=== PATIENT | female | born 1995 | race African-American/Black ===

== ENCOUNTER 2017-09-12 22:25 | Emergency (ER) | payer SELFPAY ==
--- NOTE | 2017-09-12 23:28 | EDPHYS ---
Physician Documentation [facility] Name: Chen Murillo Age: 22 yrs Sex: Female : 1995 Arrival Date: 09/12/2017 Time: 22:29 Bed 15 Private MD: ED Physician James Paz HPI: 09/12 23:24 This 22 yrs old Black Female presents to ER via Ambulatory with complaints of flu gs symptoms. 23:24 The patient or guardian reports cough, flu symptoms, arthralgias, low-grade fever, gs myalgias, no appetite. Onset: The symptoms/episode began/occurred today. Severity of symptoms: At their worst the symptoms were moderate, in the emergency department the symptoms are unchanged. Modifying factors: The symptoms are alleviated by nothing, the symptoms are aggravated by nothing. Associated signs and symptoms: Pertinent positives: dizziness, lightheaded generally weak. The patient has experienced similar episodes in the past, a few times. The patient has not recently seen a physician. 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 - Social history:: Smoking status: Patient/guardian denies using tobacco. ROS: 23:24 Neuro: Positive for headache, onset a month ago gradual in onset, unilateral, throbs. gs 23:24 All other systems are negative. Exam: 23:24 Head/Face: Normocephalic, atraumatic. Eyes: Pupils equal round and reactive to light, gs extra-ocular motions intact. Lids and lashes normal. Conjunctiva and sclera are non-icteric and not injected. Cornea within normal limits. Periorbital areas with no swelling, redness, or edema. ENT: Nares patent. No nasal discharge, no septal abnormalities noted. Tympanic membranes are normal and external auditory canals are clear. Oropharynx with no redness, swelling, or masses, exudates, or evidence of obstruction, uvula midline. Mucous membranes moist. Neck: Trachea midline, no thyromegaly or masses palpated, and no cervical lymphadenopathy. Supple, full range of motion without nuchal rigidity, or vertebral point tenderness. No Meningismus. Chest/axilla: Normal chest wall appearance and motion. Nontender with no deformity. No lesions are appreciated. Cardiovascular: Regular rate and rhythm with a normal S1 and S2. No gallops, murmurs, or rubs. Normal PMI, no JVD. No pulse deficits. Respiratory: Lungs have equal breath sounds bilaterally, clear to auscultation and percussion. No rales, rhonchi or wheezes noted. No increased work of breathing, no retractions or nasal flaring. Abdomen/GI: Soft, non-tender, with normal bowel sounds. No distension or tympany. No guarding or rebound. No evidence of tenderness throughout. Back: No spinal tenderness. No costovertebral tenderness. Full range of motion. Skin: Warm, dry with normal turgor. Normal color with no rashes, no lesions, and no evidence of cellulitis. MS/ Extremity: Pulses equal, no cyanosis. Neurovascular intact. Full, normal range of motion. Neuro: Awake and alert, GCS 15, oriented to person, place, time, and situation. Cranial nerves II-XII grossly intact. Motor strength 5/5 in all extremities. Sensory grossly intact. Cerebellar exam normal. Normal gait. 23:24 Constitutional: The patient appears alert, awake. Vital Signs: 22:40 BP 129 / 82; Pulse 88; Resp 18; Temp 97.2(TE); Pulse Ox 99% on R/A; Weight 122.47 kg ak1 (R); Height 5 ft. 3 in. (160.02 cm) (R); Pain 0/10; 23:42 BP 118 / 83; Pulse 84; Resp 18; Temp 98.1; Pulse Ox 100% on R/A; Pain 0/10; ak1 22:40 Body Mass Index 47.83 (122.47 kg, 160.02 cm) ak1 MDM: 23:09 Patient medically screened. gs 23:24 Differential Diagnosis: Bronchitis Influenza Upper Respiratory Infection. Data gs reviewed: vital signs, nurses notes. Administered Medications: No medications were administered Disposition: 09/12/17 23:27 Discharged to Home. Impression: Acute upper respiratory infection, unspecified, Headache. - Condition is Stable. - Discharge Instructions: General Headache Without Cause. - Work release form, Medication Reconciliation Form, Thank You Letter, Antibiotic Education, Prescription Opioid Use form. - Follow up: Private Physician; When: 1 - 2 days; Reason: Re-evaluation by your physician. Follow up: Dm White MD; When: 2 - 3 days; Reason: Re-evaluation by your physician. Signatures: Dalila Dickey RN RN ak1 James Paz MD MD gs Corrections: (The following items were deleted from the chart) 23:41 23:27 09/12/2017 23:27 Discharged to Home. Impression: Acute upper respiratory ak1 infection, unspecified; Headache. Condition is Stable. Forms are Medication Reconciliation Form, Thank You Letter, Antibiotic Education, Prescription Opioid Use. Follow up: Private Physician; When: 1 - 2 days; Reason: Re-evaluation by your physician. Follow up: Dm White; When: 2 - 3 days; Reason: Re-evaluation by your physician. gs
--- NOTE | 2017-09-12 23:28 | ER ---
Nurse's Notes [facility] Name: Chen Murillo Age: 22 yrs Sex: Female : 1995 Arrival Date: 09/12/2017 Time: 22:29 Bed 15 Private MD: Diagnosis: Acute upper respiratory infection, unspecified;Headache Presentation: 09/12 22:39 Presenting complaint: Patient states: congestion, bilateral eyes watering, throat pain ak1 and dizziness started at work. Transition of care: patient was not received from another setting of care. Onset of symptoms was September 12, 2017. Initial Sepsis Screen: Does the patient meet any 2 criteria? No. Patient's initial sepsis screen is negative. Does the patient have a suspected source of infection? No. Patient's initial sepsis screen is negative. Care prior to arrival: None. 22:39 Method Of Arrival: Ambulatory ak1 22:39 Acuity: WILLIE 4 ak1 Triage Assessment: 22:40 General: Appears in no apparent distress. Behavior is calm, cooperative. Pain: ak1 Complains of pain in throat pain. EENT: Throat is clear. 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 Gait is steady, Speech is normal, Facial symmetry appears normal, Pupils are PERRLA. Cardiovascular: No deficits noted. Respiratory: No deficits noted. GI: No signs and/or symptoms were reported involving the gastrointestinal system. : No signs and/or symptoms were reported regarding the genitourinary system. Derm: No signs and/or symptoms reported regarding the dermatologic system. Musculoskeletal: No signs and/or symptoms reported regarding the musculoskeletal system. 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 - Social history:: Smoking status: Patient/guardian denies using tobacco. Screenin:43 Abuse screen: Denies threats or abuse. Denies injuries from another. Nutritional ak1 screening: No deficits noted. Tuberculosis screening: No symptoms or risk factors identified. Fall Risk None identified. Assessment: 23:34 Reassessment: Patient appears in no apparent distress at this time. No changes from ak1 previously documented assessment. Patient is alert, oriented x 3, equal unlabored respirations, skin warm/dry/pink. see triage assessment. Vital Signs: 22:40 BP 129 / 82; Pulse 88; Resp 18; Temp 97.2(TE); Pulse Ox 99% on R/A; Weight 122.47 kg ak1 (R); Height 5 ft. 3 in. (160.02 cm) (R); Pain 0/10; 23:42 BP 118 / 83; Pulse 84; Resp 18; Temp 98.1; Pulse Ox 100% on R/A; Pain 0/10; ak1 22:40 Body Mass Index 47.83 (122.47 kg, 160.02 cm) ak1 ED Course: 22:29 Patient arrived in ED. 22:36 James Paz MD is Attending Physician. 22:38 Dalila Dickey RN is Primary Nurse. ak1 22:40 Triage completed. ak1 22:40 Arm band placed on Patient placed in an exam room, on a stretcher, on pulse oximetry, ak1 Patient notified of wait time. 22:43 Patient has correct armband on for positive identification. Bed in low position. Call ak1 light in reach. Side rails up X 1. Pulse ox on. NIBP on. 23:26 Dm White MD is Referral Physician. 23:34 No provider procedures requiring assistance completed. Patient did not have IV access ak1 during this emergency room visit. Administered Medications: No medications were administered Outcome: 23:27 Discharge ordered by . gs 23:34 Condition: stable ak1 23:41 Discharged to home ambulatory. ak1 23:41 Discharge instructions given to patient, Instructed on discharge instructions, follow up and referral plans. Demonstrated understanding of instructions, follow-up care. 23:41 Patient left the ED. ak1 Signatures: Regina Wong Amber, RN RN ak1 James Paz MD MD
== END 2017-09-12 23:41 | disposition home or self-care (01) ==
LOC: ER 22:25
DX: J06.9 Acute upper respiratory infection, unspecified (principal)
CPT/HCPCS: 99283

== ENCOUNTER 2020-09-15 11:38 | Emergency (ER) | payer OTHER, SELFPAY ==
--- OUTSIDE RECORDS SUMMARY | 2020-09-15 11:43 | XMS REPORT | Continuity of Care Document ---
:1995 Author Organization [facility] t Address [address] [place] [address] [address] [place] [address] Care Team Providers Name Role Phone Ziggy Shepherd DO Attending Clinician Eliceo Ramirez MD Attending Clinician Problems This patient has no known problems. Allergies, Adverse Reactions, Alerts This patient has no known allergies or adverse reactions. Medications This patient has no known medications. Procedures This patient has no known procedures. Encounters Start End Encounter Admission Attending Care Care Encounter Source Date/Time Date/Time Type Type Clinicians Facility Department ID 2020-07-21 2020-07-21 Patient ELEAZRA Shepherd [id number] 00:00:00 00:00:00 Outreach [facility] [id number] Ziggy [facility] [id number] LILY [id number] 2020-03-16 2020-03-16 Office Claudia Ramirez [facility] [id number] 14:21:10 15:12:39 Visit Eliceo Carbajal [id number] Gianni [id number] [facility] [id number] [address] Results This patient has no known results.
[2020-09-15] MEDS ORDERED: NA CHLORIDE 0.9% 1,000 ML ONE (15:13)
[2020-09-15 15:41] LABS: Urine Blood 3+ (Negative); Urine Glucose Negative (Negative); Urine Protein Negative (Negative); Urine Specific Gravity 1.025 (1.005-1.030)
[2020-09-15 15:45] LABS: Protime INR 1.2
[2020-09-15 15:47] LABS: Absolute Lymphocytes (CBC) 1.1 K/uL (0.7-4.9); Basophils % 0.5 % (0-1.3); Hematocrit 36.3 % (36.0-45.0); Lymphocytes % 10.8 % (15.3-44.8); MPV 8.9 fL (7.6-11.3); RBC Red Blood Cell Count 4.99 M/uL (3.86-4.86)
--- NOTE | 2020-09-15 15:50 | RAD REPORT ---
EXAM DESCRIPTION: Selene Single View09/15/2020 3:21 pm CLINICAL HISTORY: Shortness of breath COMPARISON: none FINDINGS: The lungs appear clear of acute infiltrate. The heart is normal size IMPRESSION: No acute abnormalities displayed
[2020-09-15 15:51] LABS: Blood Morphology Comment NOT SEEN (NOT SEEN); Platelet Estimate INCR; White Blood Cell Scan OK (OK)
[2020-09-15] MEDS ORDERED: ACETAMINOPHEN 500 MG TAB ONE (15:52)
[2020-09-15 16:07] LABS: ALT/SGPT 16 U/L (12-78); AST/SGOT 9 U/L (15-37); Albumin 3.2 g/dL (3.4-5.0); Alkaline Phosphatase 62 U/L (45-117); BUN Blood Urea Nitrogen 10 mg/dL (7-18); Bicarbonate 21 mmol/L (21-32); Bilirubin Direct 0.2 mg/dL (0-0.2); Bilirubin Total 0.5 mg/dL (0.2-1.0); Glucose Level 99 mg/dL (74-106); Magnesium 1.9 mg/dL (1.8-2.4); NT PRO-BNP 87 pg/mL (<125); Potassium 3.5 mmol/L (3.5-5.1); Protein, Total 7.9 g/dL (6.4-8.2); Sodium Level 137 mmol/L (136-145); Troponin (Emerg Dept Use Only) < 0.02 ng/mL (0.0-0.045)
[2020-09-15 16:32] LABS: Urine Specific Gravity/Preg 1.025 (1.005-1.030)
--- NOTE | 2020-09-15 16:47 | RAD REPORT ---
EXAM DESCRIPTION: CT - Chest For Pe Angio - 09/15/2020 4:35 pm CLINICAL HISTORY: Chest pain COMPARISON: None. TECHNIQUE: Dynamically enhanced axial 3 mm thick images of the chest were obtained during administra tion of <100> mL Isovue 370 IV contrast. Coronal and oblique reconstruction images were generated and reviewed. Exam utilizes a protocol for optimal evaluation of pulmonary arterial tree. Maximum intensity projections 3D imaging was utilized All CT scans are performed using dose optimization technique as appropriate and may include automated exposure control or mA/KV adjustment according to patient size. FINDINGS: A pulmonary embolus is not seen. A thoracic aortic aneurysm is not noted. A pleural effusion is not seen. A pericardial effusion is not seen. A lung consolidation is not present. IMPRESSION: Negative for a pulmonary embolism.
[2020-09-15 17:25] LABS: SARS-COV-2 RT PCR NEGATIVE (NEGATIVE)
--- NOTE | 2020-09-15 17:34 | ER ---
Nurse's Notes [facility] Name: Chen Murillo Age: 25 yrs Sex: Female : 1995 Arrival Date: 09/15/2020 Time: 11:45 Bed DIS5 Private MD: Diagnosis: Urinary tract infection, site not specified;Syncope and collapse Presentation: 09/15 11:57 Chief complaint: Patient states: left bottom tooth pain, facial swelling, fever x 1 jl7 day. Coronavirus screen: Client denies travel out of the [place] in the last 14 days. At this time, the client does not indicate any symptoms associated with coronavirus-19. Ebola Screen: No symptoms or risks identified at this time. Initial Sepsis Screen: Does the patient meet any 2 criteria? No. Patient's initial sepsis screen is negative. Does the patient have a suspected source of infection? No. Patient's initial sepsis screen is negative. Risk Assessment: Do you want to hurt yourself or someone else? Patient reports no desire to harm self or others. Onset of symptoms was September 14, 2020. Care prior to arrival: None. 11:57 Method Of Arrival: Wheelchair 7 11:57 Acuity: WILLIE 4 jl7 Triage Assessment: 17:37 General: Appears in no apparent distress. comfortable, Behavior is calm, cooperative, ld1 appropriate for age. Respiratory: Reports cough that is non-productive, Onset: The symptoms/episode began/occurred yesterday, the patient has moderate shortness of breath. 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 - Social history:: Smoking status: Patient denies any tobacco usage or history of. Screenin:26 Abuse screen: Denies threats or abuse. Denies injuries from another. Nutritional ld1 screening: No deficits noted. Tuberculosis screening: No symptoms or risk factors identified. Fall Risk None identified. Assessment: 14:26 General: Appears in no apparent distress. comfortable, Behavior is calm, cooperative, ld1 appropriate for age. Pain: Denies pain. Neuro: Level of Consciousness is awake, alert, obeys commands, Oriented to person, place, time, situation, Appropriate for age. Cardiovascular: Capillary refill < 3 seconds Patient's skin is warm and dry. Rhythm is regular. Respiratory: Airway is patent Respiratory effort is even, unlabored, Respiratory pattern is regular, symmetrical. GI: Abdomen is non-distended, obese. : No signs and/or symptoms were reported regarding the genitourinary system. EENT: No signs and/or symptoms were reported regarding the EENT system. Derm: No signs and/or symptoms reported regarding the dermatologic system. Musculoskeletal: No signs and/or symptoms reported regarding the musculoskeletal system. 15:45 Reassessment: No changes from previously documented assessment. Patient and/or family ld1 updated on plan of care and expected duration. Pain level reassessed. Patient is alert, oriented x 3, equal unlabored respirations, skin warm/dry/pink. Sitting in chair with baby and brother at bedside. Denies concerns at this time. Patient denies pain at this time. 16:26 Reassessment: Denies concerns at this time. No signs of distress. Patient waiting on ld1 results. 17:35 Reassessment: No changes from previously documented assessment. Patient and/or family ld1 updated on plan of care and expected duration. Pain level reassessed. Patient is alert, oriented x 3, equal unlabored respirations, skin warm/dry/pink. Respiratory: Breath sounds are clear bilaterally. Vital Signs: 11:57 BP 106 / 87; Pulse 87; Resp 17; Temp 100.2; Pulse Ox 100% ; Weight 135.17 kg; jl7 14:26 BP 124 / 86; Pulse 87; Resp 18; Pulse Ox 99% on R/A; Pain 0/10; ld1 15:35 BP 130 / 90; Pulse 84; Resp 18; Pulse Ox 100% on R/A; ld1 16:29 BP 122 / 84; Pulse 88; Resp 18; Pulse Ox 100% on R/A; ld1 17:35 BP 132 / 86; Pulse 78; Resp 18; Pulse Ox 100% on R/A; ld1 ED Course: 11:45 Patient arrived in ED. am2 11:59 Triage completed. jl7 11:59 Arm band placed on right wrist. Patient placed in waiting room, Patient notified of jl7 wait time. 13:31 Patient notified of wait time. jl7 14:12 Jarad Hadley PA is PHCP. logan 14:12 Binu Berrios MD is Attending Physician. logan 14:25 Aletha Lynne, OSCAR is Primary Nurse. ld1 14:26 Patient has correct armband on for positive identification. Call light in reach. ld1 14:26 No provider procedures requiring assistance completed. ld1 14:52 COVID-19 : Document "Date of Symptom Onset" if Symptomatic. Sent. ld1 14:52 Strep Sent. ld1 15:02 Initial lab(s) drawn, by ky, sent to lab. Inserted saline lock: 24 gauge in left wrist, mh5 using aseptic technique. Blood collected. 15:47 Notified Nurse Practitioner and/or Physician Electrical Wiring Lineman of a critical lab result(s), sv [id number]. 15:52 Radiology exam delayed due to IV insertion attempt and/or patient not having jg6 appropriate IV at this time. 15:52 Basic Metabolic Panel Sent. sv 15:52 CBC with Diff Sent. sv 15:52 LFT's Sent. sv 15:52 Magnesium Sent. sv 15:52 NT PRO-BNP Sent. sv 15:52 PT-INR Sent. sv 15:52 Troponin (emerg Dept Use Only) Sent. sv 15:53 D-Dimer Sent. sv 15:53 Flu Sent. sv 16:10 Inserted saline lock: 22 gauge in left antecubital area, using aseptic technique. sv ,using aseptic technique. diffusics Flushed left antecubital with 5 ml normal saline. 16:15 Urine --Ancillary (enter results) Sent. sv 17:37 IV discontinued, bleeding controlled, No redness/swelling at site. ld1 Administered Medications: 13:31 Drug: Motrin (ibuprofen) 600 mg Route: PO; jl7 15:02 Drug: NS 0.9% 1000 ml Route: IV; Rate: 1 bolus; Site: left wrist; ld1 16:24 Follow up: Response: No adverse reaction; IV Status: Infusion continued ld1 15:31 Drug: Tylenol 1000 mg Route: PO; ld1 15:50 Follow up: Response: No adverse reaction ld1 Outcome: 17:34 Discharge ordered by . logan 17:36 Discharged to home ambulatory. ld1 17:36 Condition: stable 17:36 Discharge instructions given to patient, Instructed on discharge instructions, follow up and referral plans. medication usage, Demonstrated understanding of instructions, follow-up care, medications. 17:51 Patient left the ED. ld1 Signatures: Luz Jasso, RN RN Jarad Aleman PA PA jmm Martinez, Maria [facility] Neris Gonzalez RN RN jl7 Radha Wise Jessica j Aletha Lynne RN RN ld1
--- NOTE | 2020-09-15 17:34 | EDPHYS ---
Physician Documentation [facility] Name: Chen Murillo Age: 25 yrs Sex: Female : 1995 Arrival Date: 09/15/2020 Time: 11:45 Bed DIS5 Private MD: ED Physician Binu Berrios HPI: 09/15 14:25 This 25 yrs old Black Female presents to ER via Wheelchair with complaints of Near jmm Syncope, Shortness Of Breath. 14:25 The patient has experienced near-syncope. Onset: The symptoms/episode began/occurred jmm today. Duration: This was a single episode, that is still ongoing. Associated injury: The patient did not suffer any apparent associated injury. Associated signs and symptoms: Pertinent positives: chest pain, shortness of breath. The patient has not experienced similar symptoms in the past. 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 - Social history:: Smoking status: Patient denies any tobacco usage or history of. ROS: 14:25 Constitutional: Positive for fatigue, malaise. jmm 14:25 Cardiovascular: Positive for chest pain. 14:25 Respiratory: Positive for shortness of breath. 14:25 All other systems are negative. Exam: 15:17 Constitutional: This is a well developed, well nourished patient who is awake, alert, jmm and in no acute distress. Head/Face: atraumatic. Eyes: EOMI, no conjunctival erythema appreciated ENT: Moist Mucus Membranes Neck: Trachea midline, Supple Chest/axilla: Normal chest wall appearance and motion. Cardiovascular: Regular rate and rhythm. No edema appreciated Respiratory: Normal respirations, no respiratory distress appreciated Abdomen/GI: Non distended, soft Back: Normal ROM Skin: General appearance color normal MS/ Extremity: Moves all extremities, no obvious deformities appreciated, no edema noted to the lower extremities Neuro: Awake and alert, normal gait Psych: Behavior is normal, Mood is normal, Patient is cooperative and pleasant 15:17 ECG was reviewed by the Attending Physician. Vital Signs: 11:57 BP 106 / 87; Pulse 87; Resp 17; Temp 100.2; Pulse Ox 100% ; Weight 135.17 kg; jl7 14:26 BP 124 / 86; Pulse 87; Resp 18; Pulse Ox 99% on R/A; Pain 0/10; ld1 15:35 BP 130 / 90; Pulse 84; Resp 18; Pulse Ox 100% on R/A; ld1 16:29 BP 122 / 84; Pulse 88; Resp 18; Pulse Ox 100% on R/A; ld1 17:35 BP 132 / 86; Pulse 78; Resp 18; Pulse Ox 100% on R/A; ld1 MDM: 14:22 Patient medically screened. logan 17:32 Data reviewed: vital signs, nurses notes. Counseling: I had a detailed discussion with logan the patient and/or guardian regarding: the historical points, exam findings, and any diagnostic results supporting the discharge/admit diagnosis, lab results, radiology results, the need for outpatient follow up, to return to the emergency department if symptoms worsen or persist or if there are any questions or concerns that arise at home. ED course: Patient is alert and non toxic in appearance in the ED. Patient advised to follow up with pcp and otherwise given strict return precautions. patient understood and agrees wit hthe plan of care. . 09/15 14:24 Order name: Basic Metabolic Panel [facility] 09/15 14:24 Order name: CBC with Diff [facility] 09/15 14:24 Order name: LFT's [facility] 09/15 14:24 Order name: Magnesium [facility] 09/15 14:24 Order name: NT PRO-BNP [facility] 09/15 14:24 Order name: PT-INR [facility] 09/15 14:24 Order name: Troponin (emerg Dept Use Only) [facility] 09/15 14:24 Order name: D-Dimer [facility] 09/15 14:24 Order name: Flu [facility] 09/15 14:24 Order name: COVID-19 : Document "Date of Symptom Onset" if Symptomatic. [facility] 09/15 14:24 Order name: Strep [facility] 09/15 15:41 Order name: Urine Dipstick-Ancillary; Complete Time: 15:48 [facility] 09/15 15:50 Order name: Protime (+INR); Complete Time: 15:55 [facility] 09/15 15:50 Order name: D-Dimer; Complete Time: 15:55 [facility] 09/15 14:24 Order name: XRAY Chest (1 view) [facility] 09/15 15:49 Order name: CT Chest For PE Angio [facility] 09/15 15:50 Order name: RAD; Complete Time: 15:55 [facility] 09/15 15:51 Order name: CBC with Automated Diff; Complete Time: 15:55 [facility] 09/15 15:52 Order name: CBC Smear Scan; Complete Time: 15:55 [facility] 09/15 15:57 Order name: Urine --Ancillary (enter results) 09/15 16:07 Order name: Basic Metabolic Panel; Complete Time: 16:07 [facility] 09/15 16:07 Order name: Liver (Hepatic) Function; Complete Time: 16:07 [facility] 09/15 16:07 Order name: Troponin (Emerg Dept Use Only); Complete Time: 16:07 [facility] 09/15 16:07 Order name: NT PRO-BNP; Complete Time: 16:07 [facility] 09/15 16:07 Order name: Magnesium; Complete Time: 16:07 [facility] 09/15 16:32 Order name: Urine --Ancillary; Complete Time: 16:35 [facility] 09/15 16:34 Order name: CORONAVIRUS [facility] 09/15 16:35 Order name: Influenza Screen (A [facility] 09/15 16:38 Order name: Group A Streptococcus Rapid Sc; Complete Time: 16:41 [facility] 09/15 17:25 Order name: COVID-19/FLU A+B; Complete Time: 17:27 [facility] 09/15 14:24 Order name: EKG; Complete Time: 14:24 [facility] 09/15 14:24 Order name: EKG - Nurse/Tech; Complete Time: 15:45 [facility] 09/15 14:24 Order name: IV Saline Lock; Complete Time: 15:02 [facility] 09/15 14:24 Order name: Labs collected and sent; Complete Time: 15:02 [facility] 09/15 14:24 Order name: O2 Per Protocol; Complete Time: 14:30 [facility] 09/15 14:24 Order name: O2 Sat Monitoring; Complete Time: 14:30 [facility] 09/15 14:24 Order name: Urine Dipstick-Ancillary (obtain specimen); Complete Time: 15:45 [facility] 09/15 14:54 Order name: Urine Test (obtain specimen); Complete Time: 15:45 [facility] 09/15 15:15 Order name: Labs - recollect needed: recollect green and blue top; Complete Time: 15:30 09/15 16:48 Order name: CT; Complete Time: 16:58 EDMS EC:17 Rate is 77 beats/min. Rhythm is regular. QRS [place] is Normal. NM interval is normal. QRS jmm interval is normal. QT interval is normal. No Q waves. T waves are Flattened in leads aVF, V3, V4, V5. No ST changes noted. Reviewed by me. Administered Medications: 13:31 Drug: Motrin (ibuprofen) 600 mg Route: PO; jl7 15:02 Drug: NS 0.9% 1000 ml Route: IV; Rate: 1 bolus; Site: left wrist; ld1 16:24 Follow up: Response: No adverse reaction; IV Status: Infusion continued ld1 15:31 Drug: Tylenol 1000 mg Route: PO; ld1 15:50 Follow up: Response: No adverse reaction ld1 Disposition: 17:57 Co-signature as Attending Physician, Binu Berrios MD. rn Disposition: 09/15/20 17:34 Discharged to Home. Impression: Urinary tract infection, site not specified, Syncope and collapse. - Condition is Stable. - Discharge Instructions: Dental Abscess, Syncope, Urinary Tract Infection, Adult. - Prescriptions for Augmentin 875- 125 mg Oral Tablet - take 1 tablet by ORAL route every 12 hours for 10 days; 20 tablet. - Medication Reconciliation Form, Thank You Letter, Antibiotic Education, Prescription Opioid Use form. - Follow up: Private Physician; When: 2 - 3 days; Reason: Recheck today's complaints, Continuance of care, Re-evaluation by your physician. Signatures: Dispatcher [employer] EDMS Cydney Herbert Joel, PA PA jmm Nieto, Roman, MD MD rn Leal, Jahala, RN RN jl7 Aletha Lynne RN RN ld1 Corrections: (The following items were deleted from the chart) 17:51 17:34 09/15/2020 17:34 Discharged to Home. Impression: Urinary tract infection, site ld1 not specified; Syncope and collapse. Condition is Stable. Forms are Medication Reconciliation Form, Thank You Letter, Antibiotic Education, Prescription Opioid Use. Follow up: Private Physician; When: 2 - 3 days; Reason: Recheck today's complaints, Continuance of care, Re-evaluation by your physician. logan
[2020-09-15 18:31] VITALS: TEMP 100.2
[2020-09-15 18:35] VITALS: O2SAT 100
[2020-09-15 18:38] VITALS: BP 132/86
--- NOTE | 2020-09-16 08:44 | EKG ---
Test Date: 2020-09-15 Test Time: 15:15:14 [employer] Solution Architect: KONSTANTIN MEASUREMENT RESULTS: Intervals: Rate: 77 CT: 158 QRSD: 80 QT: 362 QTc: 409 Sagle: P: 56 CT: 158 QRS: 30 T: 6 INTERPRETIVE STATEMENTS: Normal sinus rhythm Possible Inferior infarct, age undetermined Abnormal ECG No previous ECG available for comparison Electronically Signed On 09-16-20 08:41:36 CDT by Wilfrid Garcia
== END 2020-09-15 17:51 | disposition home or self-care (01) ==
LOC: ER 11:38
DX: N39.0 Urinary tract infection, site not specified (principal); Z20.822 Contact with and (suspected) exposure to COVID-19
CPT/HCPCS: 0240U; 36415; 71045; 71275; 80048; 80076; 81003; 81025; 83735; 83880; 84484; 85025; 85379; 85610; 87070; 87081; 93005; 96360; 99284; J7030; Q9967

== ENCOUNTER 2021-01-23 23:18 | Emergency (ER) | payer OTHER ==
[2021-01-24] MEDS ORDERED: ACETAMINOPHEN 500 MG TAB ONE (00:28)
--- NOTE | 2021-01-24 00:46 | ER ---
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 Coronavirus screen: Client reports previous positive COVID test result. Date of collection: January 23, 2021. Ebola Screen: No symptoms or risks identified at this time. Risk Assessment: Do you want to hurt yourself or someone else? Patient reports no desire to harm self or others. Onset of symptoms was January 23, 2021. 23:44 Method Of Arrival: Ambulatory lp1 23:44 Acuity: WILLIE 3 lp1 23:57 Initial Sepsis Screen:. sj1 01/24 00:57 Initial Sepsis Screen: Does the patient meet any 2 criteria? No. Patient's initial sj1 sepsis screen is negative. Does the patient have a suspected source of infection? No. Patient's initial sepsis screen is negative. Triage Assessment: 00:58 Respiratory: Onset: The symptoms/episode began/occurred gradually, the patient has mild sj1 shortness of breath. Historical: - Allergies: 01/23 23:46 No Known Allergies; lp1 - Home Meds: 23:46 None [Active]; lp1 - PMHx: 23:46 ADD/ADHD; lp1 - PSHx: 23:46 None; lp1 - Immunization history:: Adult Immunizations up to date. - Social history:: Smoking status: Patient denies any tobacco usage or history of. - Family history:: not pertinent. - Hospitalizations: : No recent hospitalization is reported. Screenin:46 Abuse screen: Denies threats or abuse. Denies injuries from another. Nutritional lp1 screening: No deficits noted. Tuberculosis screening: No symptoms or risk factors identified. Fall Risk None identified. Assessment: 23:54 General: Appears in no apparent distress. Behavior is calm, cooperative, appropriate sj1 for age. Pain: Denies pain. Neuro: No deficits noted. Neuro:. Cardiovascular: No deficits noted. Cardiovascular: Rhythm is sinus tachycardia. Respiratory: Airway. Respiratory: Reports shortness of breath at rest on exertion. Respiratory: Reports shortness of breath cough that is productive, Respiratory effort is even, unlabored, GI: No deficits noted. : No deficits noted. EENT: Reports lightheaded. Derm: No deficits noted. Musculoskeletal: No deficits noted. 01/24 00:08 Reassessment: [facility] from [facility] to administer tylenol 1g PO stat. Med administered. sj1 Vital Signs: 01/23 23:46 Weight 135.17 kg (R); Height 5 ft. 4 in. (162.56 cm); lp1 23:47 Pulse 121; Resp 20; Temp 102.8(O); Pulse Ox 98% on R/A; lp1 23:53 BP 135 / 80; Pulse 103 RA; sj1 01/24 00:56 BP 132 / 78; Pulse 95; Resp 18; Temp 100.3; Pulse Ox 98% on R/A; Pain 0/10; sj1 01/23 23:46 Body Mass Index 51.15 (135.17 kg, 162.56 cm) lp1 ED Course: 01/23 23:26 Patient arrived in ED. cf2 23:28 Binu Berrios MD is Attending Physician. rn 23:46 Triage completed. lp1 23:53 XRAY Chest (1 view) Sent. sj1 23:57 XRAY Chest (1 view) In Process Unspecified. EDMS 23:57 No provider procedures requiring assistance completed. sj1 23:57 Arm band placed on. sj1 23:57 Patient has correct armband on for positive identification. Bed in low position. Call sj1 light in reach. Side rails up X 1. 01/24 00:58 Patient did not have IV access during this emergency room visit. sj1 Administered Medications: 00:07 Drug: Tylenol 1000 mg Route: PO; sj1 00:59 Follow up: Response: Temperature is decreased 1 Outcome: 00:45 Discharge ordered by . rn 00:58 Discharged to home ambulatory. sj1 00:58 Condition: stable 00:58 Discharge instructions given to patient, Instructed on discharge instructions, follow up and referral plans. Demonstrated understanding of instructions. 00:58 Patient left the ED. sj1 Signatures: Dispatcher [employer] Binu Be MD MD rn Rubia Carrizales RN RN lp1 Aldo Segovia cf2 Carmela Figueroa RN RN sj1
--- NOTE | 2021-01-24 00:46 | EDPHYS ---
Physician Documentation [facility] Name: Chen Murillo Age: 25 yrs Sex: Female : 1995 Arrival Date: 01/23/2021 Time: 23:26 Bed 18 Private MD: ED Physician Binu Berrios HPI: 01/23 23:42 This 25 yrs old Black Female presents to ER via Unassigned with complaints of COVID rn POSITIVE, Breathing Difficulty, Weakness, Fever. 23:42 The patient has shortness of breath with light activity. Onset: The symptoms/episode rn began/occurred 3 day(s) ago. Duration: The symptoms are intermittent. The patient's shortness of breath is aggravated by exertion, light activity, is alleviated by rest. Associated signs and symptoms: Pertinent positives: productive cough, fever, Pertinent negatives: chest pain, hemoptysis, loss of consciousness, vomiting. Severity of symptoms: At their worst the symptoms were mild in the emergency department the symptoms are unchanged. The patient has not experienced similar symptoms in the past. The patient has not recently seen a physician. Patient reports came in because she took 3 tests and also that she was Covid positive. Reports 3 days of subjective fever/chills/myalgia/cough. Reports mild shortness of breath that worsens with exertion. No chronic lung or heart problems. Here with child who also has similar symptoms.. Historical: - Allergies: 23:46 No Known Allergies; lp1 - Home Meds: 23:46 None [Active]; lp1 - PMHx: 23:46 ADD/ADHD; lp1 - PSHx: 23:46 None; lp1 - Immunization history:: Adult Immunizations up to date. - Social history:: Smoking status: Patient denies any tobacco usage or history of. - Family history:: not pertinent. - Hospitalizations: : No recent hospitalization is reported. ROS: 23:42 Constitutional: Positive for fever and chills Eyes: Negative for injury, pain, redness, rn and discharge, ENT: Positive for congestion Neck: Negative for injury, pain, and swelling, Cardiovascular: Negative for chest pain, palpitations, and edema, Respiratory: Positive for cough and shortness of breath Abdomen/GI: Negative for abdominal pain Back: Negative for injury and pain, : Negative for injury, bleeding, discharge, and swelling, MS/Extremity: Negative for injury and deformity, Skin: Negative for injury, rash, and discoloration, Neuro: Negative for numbness, tingling, and seizure. Exam: 23:42 Constitutional: Overweight female, no acute distress Head/Face: Normocephalic, rn atraumatic. Eyes: Pupils equal round and reactive to light, extra-ocular motions intact. Lids and lashes normal. Conjunctiva and sclera are non-icteric and not injected. Cornea within normal limits. Periorbital areas with no swelling, redness, or edema. ENT: No stridor, moist mucous membranes Cardiovascular: Tachycardic, regular. No pulse deficits. Respiratory: No increased work of breathing, no retractions or nasal flaring. Skin: Warm, dry MS/ Extremity: Pulses equal, no cyanosis. Neuro: Awake and alert, GCS 15 Vital Signs: 23:46 Weight 135.17 kg (R); Height 5 ft. 4 in. (162.56 cm); lp1 23:47 Pulse 121; Resp 20; Temp 102.8(O); Pulse Ox 98% on R/A; lp1 23:53 BP 135 / 80; Pulse 103 RA; sj1 01/24 00:56 BP 132 / 78; Pulse 95; Resp 18; Temp 100.3; Pulse Ox 98% on R/A; Pain 0/10; sj1 01/23 23:46 Body Mass Index 51.15 (135.17 kg, 162.56 cm) lp1 MDM: 01/23 23:28 Patient medically screened. rn 23:45 Data interpreted: Pulse oximetry: on room air is 98 %. Interpretation: normal. rn 01/24 00:43 Differential diagnosis: pneumonia, Pneumothorax pulmonary edema, reactive airway rn disease, COVID pneumonia. Data reviewed: vital signs, nurses notes, radiologic studies, plain films, and as a result, I will discharge patient. Test interpretation: by ED physician or midlevel provider: plain radiologic studies, Chest x-ray without acute findings. No gross change compared to previous in August 2020.. Counseling: I had a detailed discussion with the patient and/or guardian regarding: the historical points, exam findings, and any diagnostic results supporting the discharge/admit diagnosis, radiology results, the need for outpatient follow up, to return to the emergency department if symptoms worsen or persist or if there are any questions or concerns that arise at home. Special discussion: I discussed with the patient/guardian in detail that at this point there is no indication for admission to the hospital. It is understood, however, that if the symptoms persist or worsen the patient needs to return immediately for re-evaluation. ED course: No oxygen requirement. Heart rate improved with fever control. Chest x-ray without gross pneumonia. Will DC home as Covid diagnosis given 3+ home tests and return precautions since she is early in her illness.. 01/23 23:42 Order name: XRAY Chest (1 view) rn Administered Medications: 00:07 Drug: Tylenol 1000 mg Route: PO; sj1 00:59 Follow up: Response: Temperature is decreased sj1 Disposition Summary: 01/24/21 00:45 Discharge Ordered Location: Home rn Problem: new rn Symptoms: have improved rn Condition: Stable rn Diagnosis - SARS-associated coronavirus as the cause of diseases classified elsewhere rn - Fever, unspecified rn Followup: rn - With: Private Physician - When: As needed - Reason: Recheck today's complaints, Re-evaluation by your physician Discharge Instructions: - Discharge Summary Sheet rn - Fever, Adult rn - COVID-19 rn - 10 Things You Can Do to Manage Your COVID-19 Symptoms at Home - [facility] rn - Viral Illness, Adult rn Forms: - Medication Reconciliation Form rn - Thank You Letter rn - Antibiotic business development intern - Prescription Opioid Use rn - School release form sj1 Signatures: Dispatcher [employer] EDMS Binu Berrios MD MD rn Pena, Laura, RN RN lp1 Carmela Figueroa RN RN sj1 Corrections: (The following items were deleted from the chart) 00:27 01/23 23:42 Constitutional: Overweight female, no acute distress Head/Face: rn Normocephalic, atraumatic. Eyes: Pupils equal round and reactive to light, extra-ocular motions intact. Lids and lashes normal. Conjunctiva and sclera are non-icteric and not injected. Cornea within normal limits. Periorbital areas with no swelling, redness, or edema. ENT: No stridor, moist mucous membranes Cardiovascular: Regular rate and rhythm. No pulse deficits. Respiratory: No increased work of breathing, no retractions or nasal flaring. Skin: Warm, dry MS/ Extremity: Pulses equal, no cyanosis. Neuro: Awake and alert, GCS 15 rn
[2021-01-24 01:39] VITALS: O2SAT 98
[2021-01-24 01:41] VITALS: BP 132/78; TEMP 100.3
--- NOTE | 2021-01-24 08:15 | RAD REPORT ---
EXAM DESCRIPTION: RAD - Chest Single View - 01/23/2021 11:57 pm CLINICAL HISTORY: COVID + COMPARISON: CT chest August 2020, portable chest August 2020 TECHNIQUE: AP portable chest image was obtained 01/23/2021 11:57 pm . FINDINGS: Lung volumes are low compared to prior imaging. No focal consolidation mass. Interstitial and alveolar markings are not clearly outside of normal range for the limitations of this portable st udy. Slight increase in each base can be explained by under penetrated portable technique and large o verlying soft tissue component. Trachea is midline. No failure or volume overload. Heart and vasculat ure are normal. No measurable pleural effusion and no pneumothorax. No acute bony abnormality seen. N o acute aortic findings suspected. IMPRESSION: No acute cardiopulmonary process. CT imaging can identify more mild lung parenchymal disease and could be performed if medical manageme nt would be altered.
== END 2021-01-24 00:58 | disposition home or self-care (01) ==
LOC: ER 23:18
DX: U07.1 COVID-19 (principal)
CPT/HCPCS: 71045; 99284